=== PATIENT | male | born 1990 ===

== ENCOUNTER 2016-09-26 18:37 | Emergency (ER) | payer MEDICAID ==
[~2016-09-26] VITALS: Ht 165.1 cm; Wt 100.5 kg
[2016-09-26] MEDS ORDERED: DIAZEPAM 5 MG/ML 2 ML SYRINGE IVP ONE (20:30)
[2016-09-26] MEDS ORDERED: SODIUM CHLORIDE 0.9% 1,000 ML IV ONE (20:30)
[2016-09-26 21:30] VITALS: BP 132/75
== END 2016-09-26 22:16 | disposition home or self-care (01) ==
LOC: EMS 18:39
DX: R07.89 Other chest pain (principal); F41.9 Anxiety disorder, unspecified; F16.10 Hallucinogen abuse, uncomplicated; F15.90 Other stimulant use, unspecified, uncomplicated; F12.90 Cannabis use, unspecified, uncomplicated; F17.210 Nicotine dependence, cigarettes, uncomplicated
CPT/HCPCS: 80307; 93005; 96361; 96374; 99285; J1885; J7030